=== PATIENT | female | born 1985 | race Caucasian/White ===

== ENCOUNTER 2018-06-01 20:35 | Emergency (ER) | payer BC ==
[~2018-06-01] VITALS: Ht 162.6 cm; Wt 90.7 kg
--- NOTE | 2018-06-01 20:42 | NUR ---
PT AMBULATORY TO ER BED 12. WAS SENT FROM URGENT CARE FOR ABNORMAL D DIMER. PT STARTED C/O L SIDED CHEST PAIN WORST AT NOON TIME STATING IT WAS A 10/10 W/ SOME DIFFICULTY BREATHING. DENIES SOB/DIFFICULTY BREATING AT THIS TIME. PLACED ON MONITOR. AWAITING MD COHN.
--- NOTE | 2018-06-01 21:00 | NUR ---
DR ABDULLAHI AT BEDSIDE FOR EVAL.
--- NOTE | 2018-06-01 21:15 | NUR ---
IV LINE STARTED BLOOD DRAWN AND SENT TO LAB.
[2018-06-01 21:20] LABS: BASOPHILS # (AUTO) 0.1 /CMM (0.0-0.2); BASOPHILS % (AUTO) 0.7 % (0.0-2.0); HEMATOCRIT 38 % (33-45); HEMOGLOBIN 13.1 g/dL (11.5-14.8); MEAN CORPUSCULAR HEMOGLOBIN 29 PG (26.0-33.0); MEAN CORPUSCULAR HGB CONC 35 g/dl (31.0-36.0); MEAN CORPUSCULAR VOLUME 85 fL (82-100); MONOCYTES # (AUTO) 0.4 /CMM (0.1-1.30); MONOCYTES % (AUTO) 5.4 % (2.0-12.0); NEUTROPHILS # (AUTO) 4.9 /CMM (1.8-8.9); NEUTROPHILS % (AUTO) 65.9 % (43.0-81.0); PLATELET COUNT (AUTO) 186 /CMM (150-450); RDW COEFFICIENT OF VARIATION 12.4 (11.5-15.0); RED BLOOD CELL COUNT(AUTO) 4.47 MIL/uL (4.0-5.2); WHITE BLOOD COUNT (AUTO) 7.6 K/uL (4.3-11.0)
[2018-06-01 21:34] LABS: CALCIUM, SERUM 9.2 mg/dL (8.5-10.1); CARBON DIOXIDE 29 mmol/L (21-32); CHLORIDE 105 mmol/L (98-107); CREATININE 0.8 mg/dL (0.6-1.3); GLUCOSE 102 mg/dL (74-106); POTASSIUM 3.7 mmol/L (3.5-5.1); SODIUM SERUM 140 mmol/L (136-145); UREA NITROGEN, BLOOD 7 mg/dL (7-18)
[2018-06-01 21:42] LABS: TROPONIN I < 0.017 ng/mL (0.00-0.056)
[2018-06-01] MEDS ORDERED: IOHEXOL-350 100 ML VIAL IV ONE (21:48)
[2018-06-01] MEDS ORDERED: CT SWABBABLE VALVE TRANS SET 1 EA INFUS.SET MC ONE (21:48)
[2018-06-01] MEDS ORDERED: IV NS 0.9% 250 ML IV ONE (21:48)
--- NOTE | 2018-06-01 21:58 | NUR ---
PT TO RADIOLOGY FOR CT PULMUNARY ANGIO VIA RTUNDE.
[2018-06-01 22:55] VITALS: BP 132/74
--- NOTE | 2018-06-01 22:55 | NUR ---
Patient discharged to home in stable condition. Written and verbal after care instructions given. Patient verbalizes understanding of instruction.IV removed. Catheter intact and site benign. Pressure and 4x4 applied to site. No bleeding noted.
== END 2018-06-01 22:56 | disposition home or self-care (01) ==
LOC: ER 20:37
DX: R07.89 Other chest pain (principal)
CPT/HCPCS: 36415; 71045-TC; 80048-TC; 84484-TC; 85025-TC; 85730-TC; A4606; J7050; Q9967; Z7610